=== PATIENT | male | born 1975 | race Caucasian/White ===

== ENCOUNTER 2018-03-02 10:48 | Emergency (ER) | payer MEDICAID, SELFPAY ==
[~2018-03-02] VITALS: Ht 175.3 cm; Wt 55.0 kg
[2018-03-02 10:49] VITALS: BP 144/84
[2018-03-02 11:35] LABS: BASOPHILS # (AUTO) 0.04 x10^3/uL (0-0.1); BASOPHILS % (AUTO) 1 % (0-1); EOSINOPHILS # (AUTO) 0.06 x10^3/uL (0-0.4); EOSINOPHILS % (AUTO) 1 % (1-7); LYMPHOCYTES # (AUTO) 2.41 x10^3/uL (1-3.4); LYMPHOCYTES % (AUTO) 26 % (22-44); MD NO; MEAN CORPUSCULAR HEMOGLOBIN 32.5 pg (27.5-34.5); MEAN CORPUSCULAR HGB CONC 33.1 g/dL (33.2-36.2); MEAN CORPUSCULAR VOLUME 98.2 fL (81-97); MEAN PLATELET VOLUME 7.9 fL (7.4-10.4); MONOCYTES # (AUTO) 1.04 x10^3/uL (0.2-0.8); MONOCYTES % (AUTO) 11 % (2-9); NEUTROPHILS # (AUTO) 5.62 x10^3/uL (1.8-6.8); NEUTROPHILS % (AUTO) 61 % (42-75); PLATELET COUNT 272 x10^3/uL (130-400); RED BLOOD COUNT 4.68 x10^6/uL (4.38-5.82); RED CELL DISTRIBUTION WIDTH 13.6 % (9.4-14.8)
[2018-03-02 11:47] LABS: ANION GAP 6 mmol/L (5-15); CALCIUM 8.9 mg/dL (8.5-10.1); CHLORIDE 105 mmol/L (98-107)
== END 2018-03-02 12:20 | disposition home or self-care (01) ==
LOC: ED 12:14
DX: K02.9 Dental caries, unspecified (principal)
CPT/HCPCS: 36415; 80048; 82040; 85025; 93005; 99285

== ENCOUNTER 2018-08-30 11:36 | Emergency (ER) | payer MEDICAID ==
[~2018-08-30] VITALS: Ht 177.8 cm; Wt 56.8 kg
[2018-08-30 11:41] VITALS: BP 124/90
== END 2018-08-30 13:00 | disposition home or self-care (01) ==
LOC: ED 12:54
DX: M94.0 Chondrocostal junction syndrome [Tietze] (principal)
CPT/HCPCS: 99283

== ENCOUNTER 2018-10-17 08:48 | Emergency (ER) | payer MEDICAID ==
[~2018-10-17] VITALS: Ht 175.3 cm; Wt 56.5 kg
[2018-10-17 08:50] VITALS: BP 130/92
--- NOTE | 2018-10-17 10:11 | NUR ---
PATIENT IV INSERTED AND PADDING AND STRETCHY GAUZE PLACED OVER IV SITE. CARE INSTRUCTIONS GIVEN. PATIENT LEFT ARM STICKY REMOVAL FROM ARM AND LOTION APPLIED. PATIENT GIVEN EXTRA SUPLLIES FOR HOME
--- NOTE | 2018-10-17 10:20 | NUR ---
ABOVE NOTE CHARTED IN ERROR UNDER WRONG RN AND WORNF PATIENT
== END 2018-10-17 10:17 | disposition home or self-care (01) ==
LOC: ED 09:57
DX: G89.29 Other chronic pain (principal); M25.551 Pain in right hip
CPT/HCPCS: 99283